=== PATIENT | female | born 1985 | race African-American/Black ===

== ENCOUNTER 2016-07-03 20:01 | Emergency (ER) | payer OTHER ==
[~2016-07-03 20:01] MED LIST: DEBROX15 M1 OT
== END 2016-07-03 22:39 | disposition home or self-care (01) ==
LOC: CED 20:01
DX: J02.9 Acute pharyngitis, unspecified (principal); F17.210 Nicotine dependence, cigarettes, uncomplicated; Z88.8 Allergy status to other drugs, medicaments and biological substances
CPT/HCPCS: 87651; 99283; J1100